=== PATIENT | male | born 1985 | race Hispanic/Latino ===

== ENCOUNTER 2024-11-16 10:23 | Emergency (ER) | payer OTHER ==
[~2024-11-16] VITALS: Ht 177.8 cm; Wt 136.1 kg
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
[2024-11-16] MEDS ORDERED: ORPHENADRINE 60MG/2ML IM ONE (11:30)
[2024-11-16] MEDS ORDERED: ketOROlac 15MG/ML VIAL (15MG/ML) IM ONE (11:30)
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
[2024-11-16] MEDS ORDERED: IBUP-2070 PO (12:46)
[2024-11-16] MEDS ORDERED: DICL20GE TP (12:46)
[2024-11-16] MEDS ORDERED: METH-662 PO (12:46)
[2024-11-16 14:08] VITALS: BP 154/65; PULSE 91; RESP 18; TEMP 97.9; O2SAT 98
== END 2024-11-16 14:09 | disposition home or self-care (01) ==
LOC: EDH 10:23
DX: T14.8XXA Other injury of unspecified body region, initial encounter (principal); M54.2 Cervicalgia; E78.00 Pure hypercholesterolemia, unspecified; V89.2XXA Person injured in unspecified motor-vehicle accident, traffic, initial encounter; Y93.89 Activity, other specified; Y92.488 Other paved roadways as the place of occurrence of the external cause; Y99.8 Other external cause status
CPT/HCPCS: 70450; 99284